=== PATIENT | male | born 1930 | race African-American/Black ===

== ENCOUNTER 2017-04-23 20:58 | Inpatient (IN) | payer MEDICARE, MEDICAID ==
[~2017-04-23] VITALS: Ht 182.9 cm; Wt 64.0 kg
[~2017-04-23 20:58] MED LIST: AMLO10TA80 PO; ANUSOL; ASPIRIN PO; ATIVAN; CLON0.1T; CLONIDINE; FISH OIL; GLIP10TA10 PO; GLUCAGON; GLYB2.5T4; GLYBURIDE; INSASP; INSU3INS6 SUBCUT; LACTULOSE; LIPITOR PO; LOTENSIN PO; MULTIVITAMINS PO; NORVASC PO; OMEP20CA4; PRAV40TA58; PRILOSEC; THIAMINE PO; TIMOLOL BOTHEYE; TRAZODONE; TYLENOL
[2017-04-23] MEDS ORDERED: SODIUM CHLORIDE 0.9% 1,000 ML IV ONE (22:33)
[2017-04-23 23:51] LABS: BASOPHILS % 0.7 % (0.0-2.0); EOSINOPHILS % 0.8 % (0.0-5.0); HEMATOCRIT. 41.2 % (42.0-52.0); LYMPHOCYTES % 16.4 % (20.0-50.0); MEAN CORPUSCULAR HEMOGLOBIN 26.8 pg (28.0-32.0); MEAN CORPUSCULAR VOLUME 79.1 fL (80.0-94.0); MEAN PLATELET VOLUME 7.9 fl (7.4-10.4); MONOCYTES % 10.5 % (2.0-8.0); NEUTROPHILS % 71.6 % (40.0-76.0); PLATELET 198 x1000/uL (130-400); RED CELL DISTRIBUTION WIDTH 14.5 % (11.6-14.6)
[2017-04-23 23:59] LABS: PROTHROMBIN TIME 10.8 sec (9.4-11.6)
[2017-04-24 00:08] LABS: CARBON DIOXIDE 23 mEq/L (21-32); CHLORIDE 100 mEq/L (98-107); ETHANOL BLOOD < 10 mg/dL; TROPONIN I < 0.02 ng/mL (0.00-0.04)
[2017-04-24 03:26] LABS: CLARITY URINE CLEAR (CLEAR); COLOR URINE YELLOW (YELLOW); GLUCOSE URINE 2+ (NEGATIVE); KETONES URINE NEGATIVE (NEGATIVE); LEUKOCYTE ESTERASE URINE 1+ (NEGATIVE); NITRITE URINE NEGATIVE (NEGATIVE); OCCULT BLOOD URINE 1+ (NEGATIVE); PH URINE 5.5 (4.5-8.0); PROTEIN URINE NEGATIVE (NEGATIVE); UROBILINOGEN URINE 0.2 E.U./dL (0.2-1.0)
[2017-04-24] MEDS ORDERED: CEFTRIAXONE 1 G PREMIX 50 ML IV SCH (03:30)
[2017-04-24] MEDS ORDERED: INSULIN REGULAR (HUMULIN R) 300UNITS/3ML IV SCH (03:30)
[2017-04-24] MEDS ORDERED: MINERAL OIL ENEMA 133ML PR SCH (03:45)
[2017-04-24 04:14] LABS: *AMPHETAMINES SCREEN URINE NEGATIVE (NEGATIVE); *BARBITURATES SCREEN URINE NEGATIVE (NEGATIVE); *BENZODIAZEPINES SCREEN URINE NEGATIVE (NEGATIVE); *COCAINE SCREEN URINE NEGATIVE (NEGATIVE); CANNABINOID URINE SCREEN NEGATIVE (NEGATIVE); METHADONE URINE SCREEN NEGATIVE (NEGATIVE); OPIATES URINE SCREEN NEGATIVE (NEGATIVE); PHENCYCLIDINE URINE SCREEN NEGATIVE (NEGATIVE)
[2017-04-24] MEDS ORDERED: LORAZEPAM 2MG/ML CPJ IV ONE (07:30)
[2017-04-24] MEDS ORDERED: DOCUSATE SODIUM 100MG CAPSULE PO PRN (13:30)
[2017-04-24] MEDS ORDERED: ONDANSETRON HCL 4MG/2ML VIAL IV PRN (13:30)
[2017-04-24] MEDS ORDERED: NA PHOS,M-B/NA PHOS,DI-BA ENEMA 118ML PR NR (13:30)
[2017-04-24] MEDS ORDERED: LACTULOSE 20G/30ML UDC PO PRN (13:30)
[2017-04-24] MEDS ORDERED: CLONIDINE 0.1MG TABLET PO PRN (13:30)
[2017-04-24 16:00] VITALS: BP 142/88
[2017-04-24] MEDS ORDERED: LEVOFLOXACIN 500MG PREMIX 100 ML IV NR (16:30)
[2017-04-24] MEDS: SODIUM CHLORIDE 0.9% 1,000 ML IV SCH (16:59)
[2017-04-24] MEDS: ENOXAPARIN 40MG/0.4ML SYR SUBCUT SCH (17:01)
[2017-04-24] MEDS ORDERED: DEXTROSE 50% WATER 50ML SYRINGE IV PRN (18:30)
[2017-04-24 20:00] VITALS: BP 138/89
[2017-04-24] MEDS: INSULIN LISPRO 100 UNITS/ML SUBCUT SCH (21:00)
[2017-04-24] MEDS: BLOOD SUGAR DIAGNOSTIC STRIP TEST SCH (21:00)
[2017-04-24] MEDS: TAMSULOSIN HCL 0.4MG SR CAPSULE PO SCH (22:38)
[2017-04-25] VITALS: BP 155/69
[2017-04-25 04:00] VITALS: BP 150/76
[2017-04-25 06:28] LABS: BASOPHILS % 0.9 % (0.0-2.0); HEMOGLOBIN. 12.5 g/dL (14.0-18.0); LYMPHOCYTES % 19.1 % (20.0-50.0); MEAN CORPUSCULAR HEMOGLOBIN 26.5 pg (28.0-32.0); MEAN CORPUSCULAR VOLUME 78.5 fL (80.0-94.0); MEAN PLATELET VOLUME 8.5 fl (7.4-10.4); MONOCYTES % 9.3 % (2.0-8.0); NEUTROPHILS % 69.7 % (40.0-76.0); PLATELET 178 x1000/uL (130-400); RED BLOOD CELL COUNT 4.71 mill/uL (4.7-6.1); RED CELL DISTRIBUTION WIDTH 14.4 % (11.6-14.6)
[2017-04-25] MEDS: BLOOD SUGAR DIAGNOSTIC STRIP TEST SCH ×4 (06:46→21:00)
[2017-04-25] MEDS: INSULIN LISPRO 100 UNITS/ML SUBCUT SCH ×3 (06:46→17:54)
[2017-04-25] MEDS: ACETAMINOPHEN 325MG TABLET PO PRN ×2 (07:02→19:51)
[2017-04-25 07:41] LABS: CARBON DIOXIDE 23 mEq/L (21-32); CHLORIDE 106 mEq/L (98-107)
[2017-04-25 08:00] VITALS: BP 141/89
[2017-04-25] MEDS: ASPIRIN 81MG EC TABLET PO SCH (08:27)
[2017-04-25] MEDS: AMLODIPINE 10MG TABLET PO SCH (08:27)
[2017-04-25] MEDS: HYDROMORPHONE HCL/PF 2MG/ML CPJ IV PRN ×2 (08:27→21:55)
[2017-04-25] MEDS ORDERED: INSULIN LISPRO 100 UNITS/ML SUBCUT NR (09:15)
[2017-04-25 12:00] VITALS: BP 152/76
[2017-04-25 16:00] VITALS: BP 163/76
[2017-04-25] MEDS: LEVOFLOXACIN 250MG PREMIX 50 ML IV SCH (17:40)
[2017-04-25] MEDS: ENOXAPARIN 40MG/0.4ML SYR SUBCUT SCH (17:40)
[2017-04-25] MEDS: SODIUM CHLORIDE 0.9% 1,000 ML IV SCH (17:41)
[2017-04-25 20:00] VITALS: BP 132/83
[2017-04-25] MEDS: TAMSULOSIN HCL 0.4MG SR CAPSULE PO SCH (21:00)
[2017-04-26] VITALS: BP 154/78
[2017-04-26] MEDS: INSULIN LISPRO 100 UNITS/ML SUBCUT SCH ×5 (00:25→22:30)
[2017-04-26] MEDS: SODIUM CHLORIDE 0.9% 1,000 ML IV SCH ×2 (06:30→22:32)
[2017-04-26] MEDS: BLOOD SUGAR DIAGNOSTIC STRIP TEST SCH ×4 (07:20→22:18)
[2017-04-26 08:00] VITALS: BP 138/77
[2017-04-26] MEDS: AMLODIPINE 10MG TABLET PO SCH (09:27)
[2017-04-26] MEDS: ASPIRIN 81MG EC TABLET PO SCH (09:27)
[2017-04-26 12:00] VITALS: BP 177/92
[2017-04-26] MEDS: HYDROMORPHONE HCL/PF 2MG/ML CPJ IV PRN (12:45)
[2017-04-26 16:00] VITALS: BP 160/82
[2017-04-26] MEDS: LEVOFLOXACIN 250MG PREMIX 50 ML IV SCH (16:38)
[2017-04-26] MEDS: ENOXAPARIN 40MG/0.4ML SYR SUBCUT SCH (16:38)
[2017-04-26 20:00] VITALS: BP 124/75
[2017-04-26] MEDS: TAMSULOSIN HCL 0.4MG SR CAPSULE PO SCH (22:11)
[2017-04-27] VITALS: BP 149/73
[2017-04-27] MEDS: HYDROMORPHONE HCL/PF 2MG/ML CPJ IV PRN ×2 (00:33→23:03)
[2017-04-27 04:00] VITALS: BP 151/78
[2017-04-27] MEDS: BLOOD SUGAR DIAGNOSTIC STRIP TEST SCH ×4 (07:49→23:36)
[2017-04-27 08:00] VITALS: BP 172/89
[2017-04-27] MEDS: INSULIN LISPRO 100 UNITS/ML SUBCUT SCH ×4 (08:25→23:42)
[2017-04-27] MEDS: ASPIRIN 81MG EC TABLET PO SCH (08:29)
[2017-04-27] MEDS: AMLODIPINE 10MG TABLET PO SCH (08:29)
[2017-04-27] MEDS: SODIUM CHLORIDE 0.9% 1,000 ML IV SCH ×2 (11:13→23:03)
[2017-04-27 12:00] VITALS: BP 144/85
[2017-04-27] MEDS: ACETAMINOPHEN 325MG TABLET PO PRN (14:57)
[2017-04-27 16:00] VITALS: BP 145/70
[2017-04-27] MEDS: LEVOFLOXACIN 250MG PREMIX 50 ML IV SCH (16:35)
[2017-04-27] MEDS: ENOXAPARIN 40MG/0.4ML SYR SUBCUT SCH (16:37)
[2017-04-27 20:00] VITALS: BP 132/67
[2017-04-27] MEDS: TAMSULOSIN HCL 0.4MG SR CAPSULE PO SCH (23:27)
[2017-04-28] VITALS: BP 133/70
[2017-04-28 04:00] VITALS: BP 158/78
[2017-04-28] MEDS: BLOOD SUGAR DIAGNOSTIC STRIP TEST SCH ×4 (06:35→20:49)
[2017-04-28] MEDS: HYDROMORPHONE HCL/PF 2MG/ML CPJ IV PRN (06:36)
[2017-04-28] MEDS: INSULIN LISPRO 100 UNITS/ML SUBCUT SCH ×4 (07:50→21:22)
[2017-04-28 08:00] VITALS: BP 173/80
[2017-04-28] MEDS: ASPIRIN 81MG EC TABLET PO SCH (08:16)
[2017-04-28] MEDS: AMLODIPINE 10MG TABLET PO SCH (08:17)
[2017-04-28 12:00] VITALS: BP 151/88
[2017-04-28] MEDS: SODIUM CHLORIDE 0.9% 1,000 ML IV SCH (14:29)
[2017-04-28] MEDS: ENOXAPARIN 40MG/0.4ML SYR SUBCUT SCH (14:36)
[2017-04-28 16:00] VITALS: BP 150/80
[2017-04-28] MEDS: LEVOFLOXACIN 250MG PREMIX 50 ML IV SCH (17:15)
[2017-04-28 20:00] VITALS: BP 158/78
[2017-04-28] MEDS: TAMSULOSIN HCL 0.4MG SR CAPSULE PO SCH (20:44)
[2017-04-28] MEDS: MUPIROCIN 2% OINT 22GM TOP SCH (21:00)
[2017-04-29] VITALS: BP_SYST 115; BP_SYST 136; BP_DIAS 69; BP_DIAS 70
[2017-04-29 04:00] VITALS: BP 115/69
[2017-04-29 08:00] VITALS: BP 107/62
[2017-04-29] MEDS: BLOOD SUGAR DIAGNOSTIC STRIP TEST SCH ×4 (08:02→20:41)
[2017-04-29] MEDS: ASPIRIN 81MG EC TABLET PO SCH (08:18)
[2017-04-29] MEDS: AMLODIPINE 10MG TABLET PO SCH (08:18)
[2017-04-29] MEDS: INSULIN LISPRO 100 UNITS/ML SUBCUT SCH ×4 (08:27→21:04)
[2017-04-29] MEDS: SODIUM CHLORIDE 0.9% 1,000 ML IV SCH ×2 (08:29→14:30)
[2017-04-29] MEDS: MUPIROCIN 2% OINT 22GM TOP SCH (11:35)
[2017-04-29] MEDS: LEVOFLOXACIN 250MG TABLET PO SCH (11:35)
[2017-04-29 12:00] VITALS: BP 123/66
[2017-04-29] MEDS: ENOXAPARIN 40MG/0.4ML SYR SUBCUT SCH ×2 (15:00→20:41)
[2017-04-29 16:00] VITALS: BP 140/80
[2017-04-29 20:00] VITALS: BP 131/78
[2017-04-29] MEDS: TAMSULOSIN HCL 0.4MG SR CAPSULE PO SCH (20:41)
[2017-04-30] VITALS (7 sets, daily range): BP systolic 131–178; BP diastolic 77–96
[2017-04-30] MEDS: SODIUM CHLORIDE 0.9% 1,000 ML IV SCH ×2 (06:29→21:28)
[2017-04-30] MEDS: BLOOD SUGAR DIAGNOSTIC STRIP TEST SCH ×4 (06:35→21:27)
[2017-04-30] MEDS: ACETAMINOPHEN 325MG TABLET PO PRN (06:58)
[2017-04-30] MEDS: INSULIN LISPRO 100 UNITS/ML SUBCUT SCH ×4 (08:07→21:32)
[2017-04-30] MEDS: AMLODIPINE 10MG TABLET PO SCH (08:55)
[2017-04-30] MEDS: MUPIROCIN 2% OINT 22GM TOP SCH (08:55)
[2017-04-30] MEDS: ASPIRIN 81MG EC TABLET PO SCH (08:55)
[2017-04-30] MEDS: LEVOFLOXACIN 250MG TABLET PO SCH (11:51)
[2017-04-30] MEDS: METOPROLOL TARTRATE 50MG TABLET PO SCH (21:27)
[2017-04-30] MEDS: TAMSULOSIN HCL 0.4MG SR CAPSULE PO SCH (21:28)
[2017-04-30] MEDS: ENOXAPARIN 40MG/0.4ML SYR SUBCUT SCH (21:33)
[2017-05-01] VITALS: BP 152/90
[2017-05-01 04:00] VITALS: BP 146/75
[2017-05-01] MEDS: SODIUM CHLORIDE 0.9% 1,000 ML IV SCH (06:19)
[2017-05-01] MEDS: BLOOD SUGAR DIAGNOSTIC STRIP TEST SCH ×2 (06:20→11:45)
[2017-05-01 08:00] VITALS: BP 147/63
[2017-05-01 08:21] LABS: HEMATOCRIT 37.2 % (42.0-52.0); HEMOGLOBIN 12.5 g/dL (14.0-18.0); MEAN CORPUSCULAR VOLUME 77.4 fL (80.0-94.0); PLATELET 193 x1000/uL (130-400); RED BLOOD CELL COUNT 4.81 mill/uL (4.7-6.1); RED CELL DISTRIBUTION WIDTH 14.1 % (11.6-14.6)
[2017-05-01] MEDS: METOPROLOL TARTRATE 50MG TABLET PO SCH (08:31)
[2017-05-01] MEDS: AMLODIPINE 10MG TABLET PO SCH (08:31)
[2017-05-01] MEDS: ASPIRIN 81MG EC TABLET PO SCH (08:31)
[2017-05-01] MEDS: INSULIN LISPRO 100 UNITS/ML SUBCUT SCH ×2 (08:35→12:17)
[2017-05-01] MEDS: MUPIROCIN 2% OINT 22GM TOP SCH (08:37)
[2017-05-01] MEDS: LEVOFLOXACIN 250MG TABLET PO SCH (11:45)
[2017-05-01 12:00] VITALS: BP 115/67
[2017-05-01 14:04] VITALS: BP 115/67
[2017-05-01 16:00] VITALS: BP 119/68
== END 2017-05-01 17:30 | DRG 872 ==
LOC: ER 20:58 → 6EST 04-24 09:26
PROVIDERS: ADMIT Hospitalist; ATTEND Hospitalist
DX: A41.9 Sepsis, unspecified organism (principal); N17.9 Acute kidney failure, unspecified; F03.90 Unspecified dementia, unspecified severity, without behavioral disturbance, psychotic disturbance, mood disturbance, and anxiety; E11.65 Type 2 diabetes mellitus with hyperglycemia; N39.0 Urinary tract infection, site not specified; H54.8 Legal blindness, as defined in USA; K59.00 Constipation, unspecified; N40.0 Benign prostatic hyperplasia without lower urinary tract symptoms; E78.00 Pure hypercholesterolemia, unspecified; H40.9 Unspecified glaucoma; I10 Essential (primary) hypertension; K21.9 Gastro-esophageal reflux disease without esophagitis; Z79.899 Other long term (current) drug therapy
CPT/HCPCS: 36415; 70450; 74176; 80053; 80305; 81001; 82962; 83605; 83690; 84484; 85025; 85027; 85610; 87040; 87086; 93970; 96361; 96365; 96375; 96376; 97162; 99285; G0482; J0696; J1170; J1650; J1815; J1956; J2060; J7030

== ENCOUNTER 2018-11-18 10:45 | Emergency (ER) | payer MEDICARE, MEDICAID ==
[~2018-11-18] VITALS: Ht 172.7 cm; Wt 75.0 kg
[~2018-11-18 10:45] MED LIST changes: +ACET-2178 MT; +AMLO10TA4 MT; -AMLO10TA80 PO; -ANUSOL; +ASPI-1158 MT; -ASPIRIN PO; +ATEN-176 MT; -ATIVAN; -CLON0.1T; -CLONIDINE; +CRAN450T10 MT; +DOCU-138 MT; +DONE10TA11 MT; -FISH OIL; +GLIP10TA10 MT; -GLIP10TA10 PO; -GLUCAGON; -GLYB2.5T4; -GLYBURIDE; -INSASP; +INSU100I28 SQ; -INSU3INS6 SUBCUT; +LACT10SO7 MT; -LACTULOSE; -LIPITOR PO; +LOT10 MT; -LOTENSIN PO; +MEMA5TAB7 MT; -MULTIVITAMINS PO; -NORVASC PO; -OMEP20CA4; -PRAV40TA58; -PRILOSEC; +TAMS-11 PO; -THIAMINE PO; +TIMO5DRO27 EACHEYE; -TIMOLOL BOTHEYE; -TRAZODONE; -TYLENOL
[2018-11-18 14:04] VITALS: BP 144/82
== END 2018-11-18 15:02 | disposition home or self-care (01) ==
LOC: ER 10:45
DX: J06.9 Acute upper respiratory infection, unspecified (principal); F03.90 Unspecified dementia, unspecified severity, without behavioral disturbance, psychotic disturbance, mood disturbance, and anxiety; E11.9 Type 2 diabetes mellitus without complications; K21.9 Gastro-esophageal reflux disease without esophagitis; E78.00 Pure hypercholesterolemia, unspecified; I10 Essential (primary) hypertension; Z86.73 Personal history of transient ischemic attack (TIA), and cerebral infarction without residual deficits; Z87.440 Personal history of urinary (tract) infections; N40.0 Benign prostatic hyperplasia without lower urinary tract symptoms; Z79.82 Long term (current) use of aspirin; Z79.899 Other long term (current) drug therapy; Z79.4 Long term (current) use of insulin
CPT/HCPCS: 71045; 99283